=== PATIENT | female | born 1960 | race Caucasian/White ===

== ENCOUNTER 2016-09-25 15:53 | Outpatient (CLI) | payer OTHER ==
--- NOTE | 2016-09-26 08:00 | Vascular Lab Report ---
LOWER EXTREMITY VENOUS DUPLEX: REASON FOR EXAM: Edema. COMMENTS ON THE RIGHT: All veins visualized are freely compressible without evidence of internal echogenicity. Flow is spontaneous and phasic throughout. COMMENTS ON THE LEFT: All veins visualized are freely compressible without evidence of internal echogenicity. Flow is spontaneous and phasic throughout. IMPRESSION: No evidence of acute or chronic deep venous thrombosis in either lower extremity.
== END 2016-09-25 15:54 | disposition home or self-care (01) ==
LOC: VAS 15:53
PROVIDERS: ATTEND Internal Medicine
DX: R60.9 Edema, unspecified (principal)
CPT/HCPCS: 93970

== ENCOUNTER 2017-01-29 08:37 | Outpatient (CLI) | payer OTHER | END 2017-01-29 08:38 | disposition home or self-care (01) | LOC: LAB 08:37 | PROVIDERS: ATTEND Internal Medicine | DX: I10 Essential (primary) hypertension (principal); E78.2 Mixed hyperlipidemia; E55.9 Vitamin D deficiency, unspecified; E61.1 Iron deficiency | CPT/HCPCS: 36415; 80061; 83036 ==

== ENCOUNTER 2018-03-12 13:23 | Outpatient (CLI) | payer OTHER ==
--- NOTE | 2018-03-12 14:32 | XRay Report ---
ROUTINE CHEST, TWO VIEWS: HISTORY: Preoperative evaluation for shoulder surgery. The trachea, heart, mediastinal contour, lung costa and bony thorax are unremarkable. IMPRESSION: Unremarkable chest x-ray.
== END 2018-03-12 13:24 | disposition home or self-care (01) ==
LOC: XRAY 13:23
PROVIDERS: ATTEND Internal Medicine
DX: Z01.818 Encounter for other preprocedural examination (principal)
CPT/HCPCS: 71046